=== PATIENT | female | born 1940 | race Caucasian/White ===

== ENCOUNTER → 2020-03-25 | Outpatient (CLI) | payer MEDICARE, BC, OTHER ==
[~2020-03-25] MED LIST: ASPI-255 PO; BUME1TAB3 PO; CLOP75TA2 PO; ENAL-36 PO; MAGN400T2 PO; METO50TA7 PO; Vitamin D3 PO; chole
--- NOTE | 2020-05-14 07:30 | REP ---
BILATERAL LOWER EXTREMITY ARTERIAL ULTRASOUND HISTORY: Leg pain. TECHNIQUE: Real-time ultrasound evaluation and duplex Doppler interrogation of bilateral lower extremity arterial systems is performed. FINDINGS: Significant plaque is seen throughout bilateral lower extremity arterial systems with multifocal narrowing and mild stenosis bilaterally. Diffuse monophasic waveforms are seen bilaterally. VELOCITY CHART PSV RIGHT (cm/s) PSV LEFT (cm/s) Femoral artery 111 118 Profunda 70 102 Proximal SFA 65 103 Mid-SFA 117 88 Distal SFA 172 100 Popliteal 80 148 Proximal CM 47 48 Tibioperoneal trunk 48 37 Proximal PAID SEARCH ANALYST 21 12 Distal PAID SEARCH ANALYST 29 26 Distal CM 79 70 MTDD
--- NOTE | 2020-05-14 07:31 | REP ---
BILATERAL LOWER EXREMITY DUPLEX DOPPLER VENOUS ULTRASOUND WITH EVALUATION FOR VENOUS REFLUX TECHNIQUE: Real-time compression and duplex Doppler interrogation of bilateral lower extremity deep venous system is performed. FINDINGS: Bilaterally the common femoral, superficial femoral, and popliteal veins are fully compressible with transducer pressure and demonstrate normal spontaneous and phasic flow without of deep vein thrombosis. Evaluation for venous reflux on the right demonstrates reflux throughout the common femoral and superficial femoral veins. There is evidence of an anterior accessory greater saphenous vein without reflux. There is no reflux in any portion of the greater saphenous vein, which measures 7 mm at the saphenofemoral junction, 5 mm in the mid thigh, and 4 mm at the knee. There is no reflux in the lesser saphenous vein, which measures 3 mm. Please note that the moderate deep system reflux is primarily with the bed tipped, less with standing. On the left, there is moderate reflux in the common femoral, superficial femoral, and popliteal veins, but less so than on the right side. There is an anterior accessory greater saphenous vein present without reflux. There is no reflux in any portion of the greater saphenous vein, which measures 6 mm at the saphenofemoral junction, 5 mm at the mid thigh, and 4 mm at the knee. There is no reflux in the lesser saphenous vein, which measures 3 mm. MTDD
== END ==
LOC: M RAD 10:30
PROVIDERS: ATTEND Physician Assistant
DX: I70.203 Unspecified atherosclerosis of native arteries of extremities, bilateral legs (principal); I87.2 Venous insufficiency (chronic) (peripheral); M79.604 Pain in right leg; M79.605 Pain in left leg

== ENCOUNTER → 2020-05-06 | Outpatient (CLI) | payer MEDICARE, BC ==
[~2020-05-06] MED LIST changes: +ACETAMINOPHEN TAB 650MG DOSE (2X325MG) PO PRN; +ISOVUE-300 61% 50ML VIAL As Ordered ONE; +LIDOCAINE 1% MDV 20ML VIAL As Ordered ONE; +MIDAZOLAM INJ 2MG/2ML VIAL (J2250 PER 1MG) As Ordered ONE; +ONDANSETRON 4MG/2ML VIAL As Ordered ONE; +fentaNYL 100 MCG/2 ML INJECTION (J3010) As Ordered ONE; +hydrALAZINE 20MG/ML 1ML VIAL (J0360 PER 20MG) As Ordered ONE; +hydrALAZINE 20MG/ML 1ML VIAL (J0360 PER 20MG) IV ONE
--- NOTE | 2020-05-06 09:46 | ROOPDOC ---
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 Ultrasound-guided access left common femoral artery 2. Aortoiliofemoral arteriogram, selection right common iliac artery with oblique views, selection right superficial femoral artery and right lower extremity runoff 3. Cross near occlusions right superficial femoral artery and angioplasty with 4 x 200 Holt balloon 4. Stent right proximal popliteal artery to proximal superficial femoral artery with 5 x 150 and 6 x 150 Innova stents 5. Post-dilate stents with 5 x 200 Holt balloon 6. Cross focal occlusion proximal right anterior tibial artery and angioplasty with 2.5 x 100 Josh balloon 7. Attempt to cross chronic total occlusion right posterior tibial artery, aborted 8. Completion arteriograms 9. Mynx closure left common femoral artery SURGEON: Rex Kern MD ANESTHESIA: Local anesthesia 7 mL lidocaine. Moderate intravenous conscious sedation was supervised by Dr. Kern. The patient was independently monitored by registered nurse assigned to the Department of radiology using automated blood pressure, EKG, and pulse oximetry. The detailed sedation record is permanently stored in the hospital information system. The following is a brief sedation record: Start time 08:01, stop time 08:54, Versed 2 mg IV, fentanyl 50 g IV, heparin 5000 units IV, Zofran 4 mg IV. CONTRAST: 44 mL Isovue-300 INDICATION FOR PROCEDURE: This is a very pleasant 80-year-old patient with PDD and lifestyle limiting claudication in the right lower extremity that is affecting her cardiac rehabilitation. Risks benefits and alternatives to right lower extremity arteriogram and potential intervention were explained to the patient and she is agreeable to proceed. Informed consent was obtained. INTERPRETATION: 1. Distal aorta is ectatic and there is some mildly aneurysmal segment in the mid distal infrarenal portion, but I estimate less than 3 cm. The left common iliac hypogastric and external iliac arteries are calcified and ectatic but widely patent. No flow limitations noted. On the right, the common iliac artery has approximately 20% stenosis for the first 4 cm, and then is widely patent. There is good flow through the hypogastric in the external iliac artery. As seen on the left, the right iliac system is also heavily calcified and ectatic, but no flow-limiting stenoses noted. 2. The right common femoral artery is widely patent and has a somewhat distal bifurcation into the superficial femoral artery and profunda well below the femoral head. The superficial femoral artery distal to this is heavily ectatic, calcified, with several focal areas of near occlusion. The popliteal artery proximally is also heavily ectatic with a focal stenoses of approximately 80%, but the mid distal popliteal artery is widely patent and has good runoff through a widely patent peroneal artery. The anterior tibial artery is widely patent for approximately 3 cm, then hasn't area of focal stenoses of about 95%, and then is widely patent with runoff to the foot. The posterior tibial artery occludes near its origin and does not reconstitute. There are thready collaterals, but overall the vessel was not visualized. 3. After crossing the right superficial femoral artery and angioplasty with a 4 x 200 Holt balloon, there was a proximal AV fistula, multiple heavy dissections that were flow-limiting, and also flow-limiting stenosis still noted at the proximal popliteal artery. After standing and post dilating, there was no longer any flow-limiting stenosis in the proximal popliteal artery or the superficial femoral artery, and the AV fistula was resolved. No embolization, extravasation, or dissections noted following this. Flow was brisk through the SFA and popliteal. 4. After crossing the near occlusion in the right anterior tibial artery and angioplasty with a 2.5 x 100 Josh balloon, there was widely patent flow with rapid runoff to the foot through the anterior tibial and peroneal arteries. We attempted to cross the occlusion in the posterior tibial artery, but were unsuccessful. This was aborted. No extravasation was noted. REPORT OF OPERATION: Patient was brought to the angiographic suite in stable condition. Her bilateral groins were prepped and draped in a sterile fashion. A timeout was performed. Local anesthesia was administered to the skin and subcutaneous tissue over the left common femoral artery. A microneedle was used to access the artery under ultrasound guidance a wire was passed through this access under fluoroscopic guidance. The needle was removed and a 4 [place] sheath was placed and flushed with saline. Through this access, a Glidewire was introduced to the distal aorta and an infusion catheter was advanced into the distal aorta. Aortoiliofemoral arteriograms were performed. Please see interpretation above. We then went up and over the bifurcation with the catheter in the Glidewire and selected the proximal common iliac artery on the right. An oblique view was performed to make sure there was not heavier stenosis than initially appreciated on the anterior posterior view. Please see interpretation above. We then advanced the Glidewire into the right superficial femoral artery and advanced the catheter for the wire. Right lower extremity runoff was performed. Please see interpretation above. We will exchange the sheath over the wire for a 45 cm destination 6 [place] sheath. This was flushed with saline. We then carefully navigated the Glidewire through the heavy plaque in near occlusions in the right superficial femoral artery and proximal popliteal artery. A 4 x 200 Holt balloon was inflated along the length of the proximal popliteal artery on the right as well as the superficial femoral artery, for three-minute inflations. Following this, we noted dissections at the areas of heavy is stenosis in plaque, as well as a small AV fistula in the proximal superficial femoral artery to the femoral vein. We then placed a 5 x 150 Innova stent from the proximal right popliteal artery to the mid superficial femoral artery, and then a 6 x 150 Innova stent with a 1 cm overlap through the proximal right superficial femoral artery. We postdilated this with a 5 x 200 Holt balloon. Following this there was brisk flow through the artery with no extravasation embolization dissections residual stenosis or ongoing AV fistula. We then exchange the wire for an O18 Glidewire advantage navigated this down to the anterior tibial artery. We were able to cross the near occlusion and selected a 2.5 x 100 Josh balloon and angioplasty for three-minute inflations. Following this, there was widely patent flow through the anterior tibial artery with no significant residual stenosis and brisk flow to the foot. No extravasation embolization or dissection occurred. We then attempted to cross the chronic total occlusion in the right posterior tibial artery with the Glidewire advantage in and have a cross, but unfortunately, we were not able to cross through the occlusion. We spent about 20 minutes trying to cross and then this was aborted. Completion arteriogram showed rapid two-vessel tibial flow with no extravasation at the right posterior tibial artery after attempt to cross. This concluded the procedure. We exchange the sheath over the wire for a 6 [place] short sheath and flushed the sheath with saline. We deployed a Mynx closure device with good hemostasis. Pressure was held for 5 minutes and sterile dressings were applied. The patient was taken to recovery in stable condition. She tolerated the procedure and the sedation well. We did give the patient's Zofran at the beginning of the procedure due to a history of nausea with anesthesia in the past, but she thankfully did not experience any nausea during this procedure with sedation. ESTIMATED BLOOD LOSS: Approximately 5 mL. COMPLICATIONS: none. PLAN: We will see the patient back in a week to check her groin access site and her progress. She will need to be on Plavix for 60 days to protect patency of the new right SFA, proximal popliteal artery stents. She should continue her aspirin as well. It is okay to continue her cardiac rehabilitation, but for the next 48 hours, we do not recommend any lifting greater than 5 pounds or strenuous exercise. After that she can slowly work back to her normal activity level. We appreciate the opportunity to participate in the care of this patient. REX KERN MD May 06, 2020 09:46
[2020-05-06 12:15] VITALS: BP 182/80
[2020-05-06 13:30] VITALS: BP 140/60
== END ==
LOC: M IRPRO 06:44
PROVIDERS: ATTEND Surgery Vascular Surgery
DX: I70.211 Atherosclerosis of native arteries of extremities with intermittent claudication, right leg (principal); I70.92 Chronic total occlusion of artery of the extremities
CPT/HCPCS: 37226; 37228; 75710; 99152; 99153; C1725; C1729; C1760; C1769; C1876; C1887; C1894; J0360; J1644; J2250; J2405; J3010; Q9967

== ENCOUNTER → 2020-06-17 | Outpatient (CLI) | payer MEDICARE, BC ==
[~2020-06-17] MED LIST changes: -ACETAMINOPHEN TAB 650MG DOSE (2X325MG) PO PRN; -ISOVUE-300 61% 50ML VIAL As Ordered ONE; -LIDOCAINE 1% MDV 20ML VIAL As Ordered ONE; -MIDAZOLAM INJ 2MG/2ML VIAL (J2250 PER 1MG) As Ordered ONE; -ONDANSETRON 4MG/2ML VIAL As Ordered ONE; -fentaNYL 100 MCG/2 ML INJECTION (J3010) As Ordered ONE; -hydrALAZINE 20MG/ML 1ML VIAL (J0360 PER 20MG) As Ordered ONE; -hydrALAZINE 20MG/ML 1ML VIAL (J0360 PER 20MG) IV ONE
--- NOTE | 2020-06-17 17:15 | REP ---
INDICATION: ATHEROSCLEROSIS. On May 06 2020, right lower extremity angiography and balloon angioplasty of the right superficial femoral artery. Balloon angioplasty is also been performed in what appears to be an anterior tibial artery in the proximal calf. Intermittent claudication. COMPARISON: Comparison study March 25, 2020.. TECHNIQUE: Bilateral lower extremity arterial Doppler ultrasound. FINDINGS: Moderate to severe plaquing is noted bilaterally. A right-sided stent is noted from the superficial femoral artery to the popliteal artery. Right posterior tibial artery is occluded proximally. Molar is revascularization is seen. The left proximal and distal posterior tibial artery are occluded. Monophasic waveforms are noted in the left lower extremity and throughout the superficial femoral artery and popliteal and tibioperoneal trunk. There is a 2-1 velocity ratio stenosis in the left popliteal/proximal anterior tibial artery region. Right lower extremity arterial Doppler velocity chart: Right CUSTOMER ADVOCATE PSV 130 cm/S Profundal 105 Proximal SFA 111 Mid SFA 76 Distal SFA 124 Popliteal 118 Tibial-peroneal trunk 91 Proximal PHYS ASST occluded Distal PHYS ASST 75 Proximal CM 146 Distal CM 83 Left lower extremity arterial Doppler velocity chart: Left CUSTOMER ADVOCATE PSV 109 cm/S Profundal 133 Proximal SFA 140 Mid SFA 98 Distal SFA 100 Popliteal 71 Proximal CM 142 Tibial-peroneal trunk 43 Proximal PHYS ASST occluded Distal PHYS ASST occluded Distal CM 89 IMPRESSION: Bilateral posterior tibial artery occlusions. Status post angioplasty and stenting of right superficial femoral artery and angioplasty right anterior tibial artery. <Electronically signed by Jose Killian > 06/17/20 1116
== END ==
LOC: M RAD 14:30
PROVIDERS: ATTEND Physician Assistant
DX: I70.213 Atherosclerosis of native arteries of extremities with intermittent claudication, bilateral legs (principal); Z95.828 Presence of other vascular implants and grafts

== ENCOUNTER → 2021-01-07 | Outpatient (CLI) | payer MEDICARE, BC ==
--- NOTE | 2021-01-07 15:33 | REP ---
INDICATION: ATHSCL [place] ARTERIES OF EXTRM W INTRMT [place], BI LEGS COMPARISON: None. TECHNIQUE: Bilateral lower extremity arterial Doppler FINDINGS: Right: The ankle brachial index was unobtainable. All numeric values represent peak systolic velocities in cm/sec EDUCATION PROGRAM SPECIALIST: 206 monophasic Profunda 124 monophasic SFA proximal 134 monophasic SFA mid 104 monophasic SFA distal 102 monophasic Popliteal 109 monophasic CM proximal 82 monophasic Tibioperoneal trunk N/A NIPPLE MAKER PROXIMAL 33 MONOPHASIC NIPPLE MAKER DISTAL 75 MONOPHASIC CM DISTAL 22 MONOPHASIC LEFT: The ankle brachial index was unobtainable. All numeric values represent peak systolic velocities in cm/sec EDUCATION PROGRAM SPECIALIST 87 biphasic Profunda 129 triphasic SFA proximal 93 monophasic SFA mid 152 monophasic SFA distal 122 monophasic Popliteal 87 monophasic CM proximal 131 monophasic Tibioperoneal trunk 59 monophasic NIPPLE MAKER proximal 50 monophasic NIPPLE MAKER distal 13 monophasic CM distal 24 monophasic IMPRESSION: As above <Electronically signed by Austin Tan > 01/07/21 [id number]
== END ==
LOC: M RAD 14:04
PROVIDERS: ATTEND Physician Assistant
DX: I70.312 Atherosclerosis of unspecified type of bypass graft(s) of the extremities with intermittent claudication, left leg (principal)

== ENCOUNTER → 2021-09-25 | Outpatient (CLI) | payer MEDICARE, BC ==
[~2021-09-25] MED LIST changes: +ANAS1TAB2 PO; +ASPI-161 PO; +D31000TA2 PO; +HOME MED LIST COMPLETE! XX SCH; +LIDOCAINE 1% MDV 20ML VIAL As Ordered ONE
== END ==
LOC: M IRPRO 07:57
PROVIDERS: ATTEND Internal Medicine Pulmonary Disease
DX: R91.1 Solitary pulmonary nodule (principal)

== ENCOUNTER → 2021-11-14 | Outpatient (CLI) | payer MEDICARE, BC ==
[~2021-11-14] MED LIST changes: -D31000TA2 PO; -HOME MED LIST COMPLETE! XX SCH; -LIDOCAINE 1% MDV 20ML VIAL As Ordered ONE; +VITA100093 PO
== END ==
LOC: M RAD 13:16
PROVIDERS: ATTEND Internal Medicine Pulmonary Disease
DX: R91.8 Other nonspecific abnormal finding of lung field (principal)